=== PATIENT | male | born 1940 | race Caucasian/White ===

== ENCOUNTER 2016-10-04 21:30 | Inpatient (IN) | payer OTHER ==
[~2016-10-04] VITALS: Ht 188 cm; Wt 183.3 kg
[~2016-10-04 21:30] MED LIST: ALLOPURINOL300 MG PO; ALPRAZOLAM0.25 M2 PO; ALPRAZOLAM0.25 MG PO; AMARYL2 MG PO; ASPIR 8181 M1 PO; Aleve PO; Aspirin E.C. PO; BACTRIM,SEPT1 TABLET PO; CARDIZEM CD120 M1 PO; CARDIZEM90 M1 PO; Cardizem CD,Cartia X PO; Combivent IH; Coumadin,Jantoven PO; Diabeta,Micronase PO; Dilaudid PO; GABAPENTIN300 MG PO; Glucotrol PO; K-Dur PO; KEFLEX500 MG PO; LANOXIN,DIGI0.125 MG PO; LANOXIN,DIGIT0.25 MG PO; LASIX40 MG PO; LISINOPRIL2.5 MG PO; LOMOTIL TABLET1 EACH PO; LOPRESSOR25 MG PO; LORTAB 7.5/51 TABLET PO; LOTENSIN20 M1 PO; LOTENSIN20 MG PO; MP MAGNESIUM100 MG PO; NEURONTIN300 MG PO; NITROSTAT,NITR0.4 M1 SL; NYSTATIN15 GM TP; Neurontin PO; PERCOCET 5/31 TABLET PO; PRAVACHOL40 MG PO; PREVACID30 MG PO; PRILOSEC OTC20 MG PO; PROVENTIL,2.5 MG/3 M IH; Proventil,Ventolin H IH; RESTASIS 01 DROP/0.4 BOTH EYES; SPIRIVA1 INHALATI IH; TOPROL XL100 MG PO; TUDORZA PRESS400 MCG IH; TUMS500 MG PO; Tudorza Pressair IH; VICODIN,LORT1 TABLET PO; ValTRex PO; Vitamin D, Drisdol PO; XANAX0.25 MG PO; XOPENEX1.25 MG/0. IH; Xanax PO; ZOLOFT50 MG PO; ZYLOPRIM100 MG PO; ZYLOPRIM150 MG PO; ZYLOPRIM300 MG PO; ZYVOX600 MG PO; Zestril,Prinivil PO; Zithromax PO; Zoloft PO; Zyloprim PO; predniSONE PO
[2016-10-04 22:49] LABS: EOSINOPHIL (%) 0.4 % (0-5); EOSINOPHIL COUNT 0.1 K/uL (0-0.3); HEMATOCRIT 36.2 % (38.0-50.0); IMMATURE GRANULOCYTE (%) 0.8 % (0.0-0.7); IMMATURE GRANULOCYTE COUNT 0.1 K/uL; INSTRUMENT ABS NEUTROPHIL CT 9.8 K/uL; LYMPHOCYTE COUNT 0.5 K/uL (1.0-2.8); MCH 28.5 PG (29.0-34.0); MCHC 31.2 G/DL (30.0-36.0); MCV 91.2 FL (86-99); MEAN PLAT.VOLUME 9.3 uM^3 (9.0-12.4); MONOCYTE (%) 7.1 % (3-12); MONOCYTE COUNT 0.8 K/uL (0-0.8); NEUTROPHIL COUNT 9.8 K/uL (1.8-6.4); PLATELET COUNT 161 K/uL (156-360); RBC DIS.WIDTH-CV 16.5 % (11.8-14.6); RBC DIS.WIDTH-SD 55.5 % (39-53); RED BLOOD COUNT 3.97 M/uL (4.00-5.50); WHITE BLOOD COUNT 11.3 K/uL (4.1-10.2)
[2016-10-04 22:58] LABS: CHLORIDE 99 mEq/L (99-109); POTASSIUM 4.6 mEq/L (3.7-5.4); SODIUM 136 mEq/L (136-147)
[2016-10-04 23:01] LABS: GLUCOSE 192 mg/dL (70-99)
[2016-10-04 23:02] LABS: ANION GAP 9 MEQ/L (2-14)
[2016-10-04 23:04] LABS: ALKALINE PHOSPHATASE 107 IU/L (3-129); GFR ESTIMATE (CALCULATED) 45 mL/min/
[2016-10-04 23:05] LABS: UREA NITROGEN (BUN) 34 mg/dL (9-23)
[2016-10-04 23:09] LABS: TROP-I INTERPRETATION NEGATIVE; TROPONIN-I < 0.01 ng/mL (0.0-0.30)
[2016-10-05 00:10] LABS: ADD MIUA? YES; BILIRUBIN NEGATIVE; BLOOD SMALL; COLOR YELLOW ((YELLOW)); GLUCOSE (STRIP) NEGATIVE; KETONES NEGATIVE; LEUKOCYTES NEGATIVE; NITRITE NEGATIVE; PROTEIN (STRIP) 100; SPECIFIC GRAVITY 1.016 (1.000-1.030)
[2016-10-05 00:17] LABS: BACTERIA NONE SEEN /HPF; EPITHELIAL CELLS RARE /HPF; HYALINE CASTS 0-5 /LPF; MUCUS TRACE /LPF; UCUL ADDED? NO; WHITE BLOOD CELLS 0-5 /HPF (0-5)
[2016-10-05 03:24] VITALS: BP 136/84
[2016-10-05 05:49] LABS: EOSINOPHIL (%) 0.5 % (0-5); EOSINOPHIL COUNT 0.1 K/uL (0-0.3); IMMATURE GRANULOCYTE (%) 0.6 % (0.0-0.7); IMMATURE GRANULOCYTE COUNT 0.1 K/uL; INSTRUMENT ABS NEUTROPHIL CT 10.6 K/uL; LYMPHOCYTE COUNT 0.7 K/uL (1.0-2.8); MCH 30.1 PG (29.0-34.0); MCHC 33.1 G/DL (30.0-36.0); MCV 90.9 FL (86-99); MEAN PLAT.VOLUME 9.1 uM^3 (9.0-12.4); MONOCYTE (%) 9.9 % (3-12); MONOCYTE COUNT 1.3 K/uL (0-0.8); NEUTROPHIL (%) 83.5 % (45-76); NEUTROPHIL COUNT 10.6 K/uL (1.8-6.4); PLATELET COUNT 152 K/uL (156-360); RBC DIS.WIDTH-CV 16.7 % (11.8-14.6); RBC DIS.WIDTH-SD 56.1 % (39-53); RED BLOOD COUNT 3.52 M/uL (4.00-5.50); WHITE BLOOD COUNT 12.6 K/uL (4.1-10.2)
[2016-10-05 06:19] LABS: ANION GAP 8 MEQ/L (2-14); CHLORIDE 103 MEQ/L (99-109); GFR ESTIMATE (CALCULATED) 52 mL/min/; GLUCOSE 182 mg/dL (70-99); POTASSIUM 4.4 MEQ/L (3.7-5.4); SAMPLE HEMOLYSIS CHECK 0; SAMPLE ICTERIC CHECK 0; SAMPLE LIPEMIA CHECK 0; SODIUM 138 MEQ/L (136-147); UREA NITROGEN (BUN) 34 mg/dL (9-23)
[2016-10-05 09:04] VITALS: BP 139/83
[2016-10-05] MEDS ORDERED: DILTIAZEM ER360 M1 PO (09:16)
[2016-10-05] MEDS ORDERED: ALPRAZOLAM0.25 M2 PO (09:17)
[2016-10-05] MEDS ORDERED: NEURONTIN300 MG PO (09:18)
[2016-10-05] MEDS ORDERED: ZESTRIL5 MG PO (09:18)
[2016-10-05] MEDS ORDERED: VITAMIN D32000 UNI1 PO (09:19)
[2016-10-05] MEDS ORDERED: PROBIOTIC1 EAC1 PO (09:19)
[2016-10-05] MEDS ORDERED: ZYLOPRIM300 MG PO (09:20)
[2016-10-05 12:08] VITALS: BP 139/85
[2016-10-05] MEDS ORDERED: CHILD ASPIRIN81 M1 PO (12:39)
[2016-10-05 14:38] LABS: POINT-OF-CARE METER ID UU14174225
[2016-10-05 17:48] VITALS: BP 146/82
[2016-10-05 17:58] LABS: POINT-OF-CARE METER ID UU13113717
[2016-10-05 19:52] VITALS: BP 145/68
[2016-10-05 21:32] LABS: POINT-OF-CARE METER ID UU13113717
[2016-10-06] VITALS (7 sets, daily range): BP systolic 127–161; BP diastolic 70–94
[2016-10-06 02:53] LABS: POINT-OF-CARE METER ID UU14188625
[2016-10-06 05:32] LABS: HEMATOCRIT 32.4 % (38.0-50.0); MCH 29.4 PG (29.0-34.0); MCHC 32.7 G/DL (30.0-36.0); MCV 89.8 FL (86-99); MEAN PLAT.VOLUME 9.2 uM^3 (9.0-12.4); PLATELET COUNT 165 K/uL (156-360); RBC DIS.WIDTH-CV 16.1 % (11.8-14.6); RBC DIS.WIDTH-SD 53.1 % (39-53); RED BLOOD COUNT 3.61 M/uL (4.00-5.50); WHITE BLOOD COUNT 9.9 K/uL (4.1-10.2)
[2016-10-06 05:59] LABS: ANION GAP 7 MEQ/L (2-14); CHLORIDE 101 MEQ/L (99-109); GFR ESTIMATE (CALCULATED) 57 mL/min/; GLUCOSE 229 mg/dL (70-99); SAMPLE HEMOLYSIS CHECK 0; SAMPLE ICTERIC CHECK 0; SAMPLE LIPEMIA CHECK 0; SODIUM 135 MEQ/L (136-147); UREA NITROGEN (BUN) 38 mg/dL (9-23)
[2016-10-06 06:16] LABS: POINT-OF-CARE METER ID UU14188625
[2016-10-06 10:06] LABS: INTERNAL CONTROL VALID? YES
[2016-10-06 10:29] LABS: POINT-OF-CARE METER ID UU14188625
[2016-10-06 17:44] LABS: POINT-OF-CARE METER ID UU14188625
[2016-10-07 02:26] LABS: POINT-OF-CARE METER ID UU14174225
[2016-10-07 03:46] VITALS: BP 165/91
[2016-10-07 06:16] LABS: ANION GAP 9 MEQ/L (2-14); CHLORIDE 100 MEQ/L (99-109); GFR ESTIMATE (CALCULATED) 48 mL/min/; GLUCOSE 209 mg/dL (70-99); POTASSIUM 4.9 MEQ/L (3.7-5.4); SAMPLE HEMOLYSIS CHECK 0; SAMPLE ICTERIC CHECK 0; SAMPLE LIPEMIA CHECK 0; SODIUM 137 MEQ/L (136-147); UREA NITROGEN (BUN) 46 mg/dL (9-23)
[2016-10-07 07:42] VITALS: BP 142/98
[2016-10-07 11:03] LABS: POINT-OF-CARE USER ID STWAMT
[2016-10-07 11:06] VITALS: BP 153/72
[2016-10-07] MEDS ORDERED: PREDNISONE20 MG PO (11:29)
[2016-10-07] MEDS ORDERED: ASPIR-LOW81 MG PO (11:29)
[2016-10-07] MEDS ORDERED: LEVEMIR FL100 UNIT/1 SC (11:33)
[2016-10-07] MEDS ORDERED: LEVAQUIN750 MG PO (11:40)
[2016-10-07] MEDS ORDERED: 1ST TIER UNILE1 EAC1 MC (11:41)
[2016-10-07] MEDS ORDERED: EASY COMFORT I1 EAC4 MC (11:41)
[2016-10-07] MEDS ORDERED: GLUCOMETER MC (11:41)
[2016-10-07] MEDS ORDERED: NOVOLOG PE100 UNITS/ SC (11:47)
[2016-10-07] MEDS ORDERED: VENTOLIN HFA18 GM IH (11:48)
[2016-10-07] MEDS ORDERED: ATROVENT H200 INHALA IH (11:49)
[2016-10-07] MEDS ORDERED: MEDROL DOSEPAK4 MG PO (11:55)
[2016-10-07] MEDS ORDERED: FORA V10-V12-D1 EACH MC (11:58)
[2016-10-07] MEDS ORDERED: HYDROCODON-ACE1 EAC7 PO (12:59)
[2016-10-07] MEDS ORDERED: PROAIR HFA8.5 GM IH (13:00)
== END 2016-10-07 15:51 | disposition home health service (06) | DRG 190 ==
LOC: EME → EDBD 21:30 → EME 21:30 → EDOF 10-05 01:55 → 5SOUTH 10-05 01:55 → ENRESERV 10-05 01:56 → 5SOUTH 10-05 02:58
PROVIDERS: Emergency Medicine; Internal Medicine; Physician Assistant Medical
DX: J44.0 Chronic obstructive pulmonary disease with (acute) lower respiratory infection (principal); J18.1 Lobar pneumonia, unspecified organism; J44.1 Chronic obstructive pulmonary disease with (acute) exacerbation; G47.33 Obstructive sleep apnea (adult) (pediatric); I13.0 Hypertensive heart and chronic kidney disease with heart failure and stage 1 through stage 4 chronic kidney disease, or unspecified chronic kidney disease; Z99.81 Dependence on supplemental oxygen; Z68.43 Body mass index [BMI] 50.0-59.9, adult; J96.11 Chronic respiratory failure with hypoxia; I48.2 Chronic atrial fibrillation; N18.3 Chronic kidney disease, stage 3 (moderate); E11.22 Type 2 diabetes mellitus with diabetic chronic kidney disease; E11.65 Type 2 diabetes mellitus with hyperglycemia; I71.2 Thoracic aortic aneurysm, without rupture; F41.9 Anxiety disorder, unspecified; I50.9 Heart failure, unspecified; K21.9 Gastro-esophageal reflux disease without esophagitis; Z90.2 Acquired absence of lung [part of]; Z79.82 Long term (current) use of aspirin; Z86.718 Personal history of other venous thrombosis and embolism; Z85.118 Personal history of other malignant neoplasm of bronchus and lung
CPT/HCPCS: 71020; 71250; 71275; 80048; 80053; 81003; 82948; 83605; 83880; 84484; 85025; 85027; 85379; 87040; 87070; 87205; 87449; 93005; 93970; 94640; 94640 76; 94799; 99202; 99281; 99285; J0456; J0696; J1644; J1815; J2930; J7050; J7644

== ENCOUNTER 2016-10-31 20:09 | Inpatient (IN) | payer OTHER ==
[~2016-10-31] VITALS: Ht 188 cm; Wt 197.0 kg
[~2016-10-31 20:09] MED LIST changes: +1ST TIER UNILE1 EAC1 MC; +ASPIR-LOW81 MG PO; +ATROVENT H200 INHALA IH; +CHILD ASPIRIN81 M1 PO; +DILTIAZEM ER360 M1 PO; +EASY COMFORT I1 EAC4 MC; +FORA V10-V12-D1 EACH MC; +GLUCOMETER MC; +HYDROCODON-ACE1 EAC7 PO; +LEVAQUIN750 MG PO; +LEVEMIR FL100 UNIT/1 SC; +MEDROL DOSEPAK4 MG PO; +NOVOLOG PE100 UNITS/ SC; +PREDNISONE20 MG PO; +PROAIR HFA8.5 GM IH; +PROBIOTIC1 EAC1 PO; +VENTOLIN HFA18 GM IH; +VITAMIN D32000 UNI1 PO; +ZESTRIL5 MG PO
[2016-10-31 20:35] LABS: EOSINOPHIL (%) 0.3 % (0-5); IMMATURE GRANULOCYTE (%) 0.9 % (0.0-0.7); INSTRUMENT ABS NEUTROPHIL CT 3.1 K/uL; LYMPHOCYTE COUNT 0.2 K/uL (1.0-2.8); MCH 28.5 PG (29.0-34.0); MCHC 30.3 G/DL (30.0-36.0); MONOCYTE (%) 2.1 % (3-12); MONOCYTE COUNT 0.1 K/uL (0-0.8); NEUTROPHIL (%) 92.2 % (45-76); NEUTROPHIL COUNT 3.1 K/uL (1.8-6.4); RBC DIS.WIDTH-CV 17.4 % (11.8-14.6); RBC DIS.WIDTH-SD 60.2 % (39-53); RED BLOOD COUNT 4.03 M/uL (4.00-5.50); WHITE BLOOD COUNT 3.4 K/uL (4.1-10.2)
[2016-10-31 20:41] LABS: CHLORIDE 102 mEq/L (99-109); POTASSIUM 4.9 mEq/L (3.7-5.4)
[2016-10-31 20:42] LABS: SODIUM 142 mEq/L (136-147)
[2016-10-31 20:44] LABS: GLUCOSE 130 mg/dL (70-99)
[2016-10-31 20:45] LABS: ANION GAP 13 MEQ/L (2-14)
[2016-10-31 20:46] LABS: TOTAL BILIRUBIN 1.1 mg/dL (0.0-1.0)
[2016-10-31 20:47] LABS: ALKALINE PHOSPHATASE 136 IU/L (3-129); GFR ESTIMATE (CALCULATED) 42 mL/min/
[2016-10-31 20:49] LABS: UREA NITROGEN (BUN) 29 mg/dL (9-23)
[2016-10-31 20:53] LABS: TROP-I INTERPRETATION NEGATIVE; TROPONIN-I 0.01 ng/mL (0.0-0.30)
[2016-10-31 20:58] LABS: BASE EXCESS 2.8 mEq/L (-3 to +3); BICARBONATE 27.9 mEq/L (22-26); CARBOXY HGB 1.9 % (0-5); COMMENTS - BLOOD GASES A+C+; DEVICE NRM; METHEMOGLOBIN 0.9 % (0-1.5); O2 FLOW 15 L/MIN; PCO2 44 mm Hg (35-45); PO2 308 mm Hg (80-100); SITE LR; pH 7.41 (7.35-7.45)
[2016-10-31 20:59] LABS: TOTAL RESP RATE 28 resp/min
[2016-10-31 21:00] LABS: MCV 94.3 FL (86-99)
[2016-10-31 21:19] LABS: MEAN PLAT.VOLUME 8.4 uM^3 (9.0-12.4); PLAT.SUFFICIENCY DECREASED
[2016-10-31 21:31] LABS: PLATELET COUNT 114 K/uL (156-360)
[2016-10-31 22:42] LABS: ADD MIUA? NO; BILIRUBIN SMALL; BLOOD NEGATIVE; COLOR AMBER ((YELLOW)); GLUCOSE (STRIP) NEGATIVE; KETONES NEGATIVE; LEUKOCYTES NEGATIVE; NITRITE NEGATIVE; PROTEIN (STRIP) 30; UCUL ADDED? NO
[2016-10-31] MEDS ORDERED: LO-DOSE ASPIRIN81 M2 PO (23:38)
[2016-10-31] MEDS ORDERED: DITROPAN5 MG PO (23:47)
[2016-10-31] MEDS ORDERED: ROCALTROL0.25 MCG PO (23:47)
[2016-11-01] VITALS (7 sets, daily range): BP systolic 114–152; BP diastolic 70–82
[2016-11-01 04:11] LABS: INTER. NORMALIZED RATIO 1.2; PROTHROMBIN TIME 13.2 SEC (10.2-12.9)
[2016-11-01 04:14] LABS: PTT 23.1 SEC (25-37)
[2016-11-01 04:14] LABS: TROP-I INTERPRETATION NEGATIVE; TROPONIN-I 0.02 ng/mL (0.0-0.30)
[2016-11-01 07:34] LABS: POINT-OF-CARE METER ID UU13113698
[2016-11-01 11:00] LABS: HEMATOCRIT 34.3 % (38.0-50.0); MCH 28.5 PG (29.0-34.0); MCHC 30.6 G/DL (30.0-36.0); MEAN PLAT.VOLUME 8.5 uM^3 (9.0-12.4); PLATELET COUNT 125 K/uL (156-360); RBC DIS.WIDTH-CV 17.6 % (11.8-14.6); RBC DIS.WIDTH-SD 60.1 % (39-53); RED BLOOD COUNT 3.69 M/uL (4.00-5.50); WHITE BLOOD COUNT 6.4 K/uL (4.1-10.2)
[2016-11-01 11:30] LABS: ALKALINE PHOSPHATASE 100 IU/L (3-129); ANION GAP 9 MEQ/L (2-14); CHLORIDE 105 MEQ/L (99-109); GFR ESTIMATE (CALCULATED) 48 mL/min/; GLUCOSE 119 mg/dL (70-99); POTASSIUM 4.4 MEQ/L (3.7-5.4); SAMPLE HEMOLYSIS CHECK 0; SAMPLE ICTERIC CHECK 0; SAMPLE LIPEMIA CHECK 0; SODIUM 142 MEQ/L (136-147); TOTAL BILIRUBIN 0.9 MG/DL (0.0-1.0); UREA NITROGEN (BUN) 28 mg/dL (9-23)
[2016-11-01 11:31] LABS: POINT-OF-CARE METER ID UU13113698
[2016-11-01 11:41] LABS: TROP-I INTERPRETATION NEGATIVE; TROPONIN-I < 0.01 ng/mL (0.0-0.30)
[2016-11-01 16:27] LABS: POINT-OF-CARE METER ID UU13113698
[2016-11-01 17:25] LABS: INTER. NORMALIZED RATIO 1.2; PROTHROMBIN TIME 13.7 SEC (10.2-12.9)
[2016-11-01 17:28] LABS: PTT 55.2 SEC (25-37)
[2016-11-01 23:48] LABS: INTER. NORMALIZED RATIO 1.2; PROTHROMBIN TIME 13.2 SEC (10.2-12.9)
[2016-11-01 23:51] LABS: PTT 51.7 SEC (25-37)
[2016-11-02 02:58] LABS: POINT-OF-CARE METER ID UU13113698
[2016-11-02 04:06] VITALS: BP 125/75
[2016-11-02 06:32] LABS: MCH 29.2 PG (29.0-34.0); MCHC 31.3 G/DL (30.0-36.0); MCV 93.6 FL (86-99); MEAN PLAT.VOLUME 8.9 uM^3 (9.0-12.4); PLATELET COUNT 127 K/uL (156-360); RBC DIS.WIDTH-CV 17.2 % (11.8-14.6); RBC DIS.WIDTH-SD 58.8 % (39-53); RED BLOOD COUNT 3.42 M/uL (4.00-5.50); WHITE BLOOD COUNT 5.1 K/uL (4.1-10.2)
[2016-11-02 06:58] LABS: ANION GAP 6 MEQ/L (2-14); CHLORIDE 102 MEQ/L (99-109); GFR ESTIMATE (CALCULATED) 48 mL/min/; GLUCOSE 134 mg/dL (70-99); POTASSIUM 4.5 MEQ/L (3.7-5.4); SAMPLE HEMOLYSIS CHECK 0; SAMPLE ICTERIC CHECK 0; SAMPLE LIPEMIA CHECK 0; SODIUM 141 MEQ/L (136-147); UREA NITROGEN (BUN) 27 mg/dL (9-23)
[2016-11-02 07:33] LABS: POINT-OF-CARE METER ID UU13113698
[2016-11-02 07:42] VITALS: BP 131/84
[2016-11-02 12:25] LABS: POINT-OF-CARE METER ID UU13113781
[2016-11-02 12:29] VITALS: BP 138/81
[2016-11-02 14:44] VITALS: BP 124/65
[2016-11-02 16:25] LABS: POINT-OF-CARE METER ID UU13113781
[2016-11-02 19:34] VITALS: BP 146/82
[2016-11-03 00:20] VITALS: BP 141/80
[2016-11-03 03:10] VITALS: BP 141/82
[2016-11-03 03:44] LABS: POINT-OF-CARE METER ID UU13113781
[2016-11-03 05:42] LABS: HEMATOCRIT 30.6 % (38.0-50.0); MCH 29.3 PG (29.0-34.0); MCHC 31.7 G/DL (30.0-36.0); MCV 92.4 FL (86-99); MEAN PLAT.VOLUME 8.7 uM^3 (9.0-12.4); PLATELET COUNT 147 K/uL (156-360); RBC DIS.WIDTH-CV 17.2 % (11.8-14.6); RBC DIS.WIDTH-SD 58.4 % (39-53); RED BLOOD COUNT 3.31 M/uL (4.00-5.50); WHITE BLOOD COUNT 4.2 K/uL (4.1-10.2)
[2016-11-03 07:35] VITALS: BP 131/88
[2016-11-03 07:59] LABS: POINT-OF-CARE USER ID NUTSLF44
== END 2016-11-03 11:02 | disposition home health service (06) | DRG 191 ==
LOC: EME → EDBD 20:09 → EDOF 11-01 01:36 → 4EAST 11-01 01:36 → ENRESERV 11-01 01:37 → 4EAST 11-01 02:34
PROVIDERS: Emergency Medicine; Hospitalist; Internal Medicine
DX: J44.1 Chronic obstructive pulmonary disease with (acute) exacerbation (principal); N17.9 Acute kidney failure, unspecified; I13.0 Hypertensive heart and chronic kidney disease with heart failure and stage 1 through stage 4 chronic kidney disease, or unspecified chronic kidney disease; E11.22 Type 2 diabetes mellitus with diabetic chronic kidney disease; N18.3 Chronic kidney disease, stage 3 (moderate); I50.9 Heart failure, unspecified; E86.0 Dehydration; E87.2 Acidosis; G47.33 Obstructive sleep apnea (adult) (pediatric); Z99.81 Dependence on supplemental oxygen; I48.0 Paroxysmal atrial fibrillation; K21.9 Gastro-esophageal reflux disease without esophagitis; I71.2 Thoracic aortic aneurysm, without rupture; I87.2 Venous insufficiency (chronic) (peripheral); R31.9 Hematuria, unspecified; M10.9 Gout, unspecified; K75.9 Inflammatory liver disease, unspecified; F41.9 Anxiety disorder, unspecified; F32.9 Major depressive disorder, single episode, unspecified; E66.01 Morbid (severe) obesity due to excess calories; Z68.43 Body mass index [BMI] 50.0-59.9, adult; Z79.4 Long term (current) use of insulin; Z85.118 Personal history of other malignant neoplasm of bronchus and lung; Z87.891 Personal history of nicotine dependence; Z90.2 Acquired absence of lung [part of]
CPT/HCPCS: 36600; 71010; 71250; 74176; 78582; 80048; 80053; 81003; 82803; 82948; 83605; 83880; 84484; 85025; 85027; 85379; 85610; 85730; 87040; 93005; 94640; 94640 76; 99202; 99281; 99284; A9539; A9540; J1644; J1815; J2543; J3370; J7030; J7050

== ENCOUNTER 2017-02-06 12:51 | Inpatient (IN) | payer OTHER ==
[~2017-02-06] VITALS: Ht 188 cm; Wt 224.0 kg
[~2017-02-06 12:51] MED LIST changes: +DITROPAN5 MG PO; +LO-DOSE ASPIRIN81 M2 PO; +ROCALTROL0.25 MCG PO
[2017-02-06 14:04] LABS: BASE EXCESS 6.5 mEq/L (-3 to +3); BICARBONATE 34.3 mEq/L (22-26); CARBOXY HGB 2.9 % (0-5); COMMENTS - BLOOD GASES A+C+; DEVICE NC; METHEMOGLOBIN 0.9 % (0-1.5); O2 FLOW 2 L/MIN; PCO2 65 mm Hg (35-45); PO2 82 mm Hg (80-100); SITE RR; TOTAL RESP RATE 18 resp/min; pH 7.33 (7.35-7.45)
[2017-02-06 14:33] LABS: HEMATOCRIT 38.3 % (38.0-50.0); MCH 28.6 PG (29.0-34.0); MCHC 30.5 G/DL (30.0-36.0); MCV 93.6 FL (86-99); MEAN PLAT.VOLUME 8.9 uM^3 (9.0-12.4); PLATELET COUNT 130 K/uL (156-360); RBC DIS.WIDTH-SD 58.5 % (39-53); RED BLOOD COUNT 4.09 M/uL (4.00-5.50); WHITE BLOOD COUNT 6.2 K/uL (4.1-10.2)
[2017-02-06 14:45] LABS: CHLORIDE 99 mEq/L (99-109); SODIUM 141 mEq/L (136-147)
[2017-02-06 14:47] LABS: GLUCOSE 224 mg/dL (70-99)
[2017-02-06 14:48] LABS: ANION GAP 10 MEQ/L (2-14)
[2017-02-06 14:49] LABS: TOTAL BILIRUBIN 0.6 mg/dL (0.0-1.0)
[2017-02-06 14:50] LABS: ALKALINE PHOSPHATASE 104 IU/L (3-129)
[2017-02-06 14:51] LABS: GFR ESTIMATE (CALCULATED) 57 mL/min/
[2017-02-06 14:52] LABS: UREA NITROGEN (BUN) 24 mg/dL (9-23)
[2017-02-06 14:55] LABS: TROP-I INTERPRETATION NEGATIVE; TROPONIN-I 0.02 ng/mL (0.0-0.30)
[2017-02-06 18:05] LABS: ADD MIUA? YES; BILIRUBIN NEGATIVE; BLOOD SMALL; COLOR STRAW ((YELLOW)); GLUCOSE (STRIP) NEGATIVE; KETONES NEGATIVE; LEUKOCYTES NEGATIVE; NITRITE NEGATIVE; PROTEIN (STRIP) NEGATIVE; SPECIFIC GRAVITY 1.005 (1.000-1.030); UROBILINOGEN 0.2 MG/DL (0.2-1.0)
[2017-02-06 18:15] LABS: BACTERIA NONE SEEN /HPF; EPITHELIAL CELLS NONE SEEN /HPF; MUCUS NONE SEEN /LPF; RED BLOOD CELLS 0-5 /HPF (0-5); UCUL ADDED? NO; WHITE BLOOD CELLS 0-5 /HPF (0-5)
[2017-02-06 21:39] VITALS: BP 146/70
[2017-02-06 22:22] LABS: POINT-OF-CARE METER ID UU13113725
[2017-02-06 22:50] LABS: TROP-I INTERPRETATION NEGATIVE; TROPONIN-I 0.01 ng/mL (0.0-0.30)
[2017-02-06 23:42] VITALS: BP 171/86
[2017-02-07 03:35] LABS: TROP-I INTERPRETATION NEGATIVE; TROPONIN-I 0.02 ng/mL (0.0-0.30)
[2017-02-07 05:53] LABS: POINT-OF-CARE METER ID UU13113725
[2017-02-07 06:20] LABS: HEMATOCRIT 38.2 % (38.0-50.0); MCH 27.7 PG (29.0-34.0); MCHC 30.1 G/DL (30.0-36.0); PLATELET COUNT 129 K/uL (156-360); RBC DIS.WIDTH-CV 16.6 % (11.8-14.6); RBC DIS.WIDTH-SD 56.6 % (39-53); RED BLOOD COUNT 4.15 M/uL (4.00-5.50)
[2017-02-07 06:43] LABS: ANION GAP 10 MEQ/L (2-14); CHLORIDE 96 MEQ/L (99-109); GFR ESTIMATE (CALCULATED) 52 mL/min/; GLUCOSE 292 mg/dL (70-99); POTASSIUM 4.5 MEQ/L (3.7-5.4); SAMPLE HEMOLYSIS CHECK 0; SAMPLE ICTERIC CHECK 0; SAMPLE LIPEMIA CHECK 0; SODIUM 142 MEQ/L (136-147); UREA NITROGEN (BUN) 22 mg/dL (9-23)
[2017-02-07 07:37] VITALS: BP 139/93
[2017-02-07 11:32] LABS: POINT-OF-CARE METER ID UU13113725
[2017-02-07 12:05] VITALS: BP 154/84
[2017-02-07] MEDS ORDERED: ALBUTEROL2.5 MG/3 M IH (14:31)
[2017-02-07] MEDS ORDERED: EYE DROP15 ML BOTH EYES (14:32)
[2017-02-07 15:08] VITALS: BP 145/69
[2017-02-07 16:06] LABS: POINT-OF-CARE METER ID UU13113774
[2017-02-07 19:13] VITALS: BP 170/95
[2017-02-07 20:41] LABS: POINT-OF-CARE METER ID UU13113774
[2017-02-07 23:24] VITALS: BP 142/85
[2017-02-08 03:53] VITALS: BP 165/75
[2017-02-08 05:48] LABS: POINT-OF-CARE METER ID UU13113725
[2017-02-08 06:11] LABS: EOSINOPHIL (%) 0 % (0-5); HEMATOCRIT 36.2 % (38.0-50.0); IMMATURE GRANULOCYTE (%) 0.7 % (0.0-0.7); INSTRUMENT ABS NEUTROPHIL CT 5.6 K/uL; LYMPHOCYTE COUNT 0.2 K/uL (1.0-2.8); MCHC 30.9 G/DL (30.0-36.0); MCV 90.5 FL (86-99); MONOCYTE (%) 2.8 % (3-12); MONOCYTE COUNT 0.2 K/uL (0-0.8); NEUTROPHIL (%) 93.2 % (45-76); NEUTROPHIL COUNT 5.6 K/uL (1.8-6.4); PLATELET COUNT 130 K/uL (156-360); RBC DIS.WIDTH-CV 16.3 % (11.8-14.6); RBC DIS.WIDTH-SD 54.6 % (39-53)
[2017-02-08 06:30] LABS: CHLORIDE 95 MEQ/L (99-109); POTASSIUM 4.3 MEQ/L (3.7-5.4); SODIUM 137 MEQ/L (136-147)
[2017-02-08 08:00] VITALS: BP 143/77
[2017-02-08 08:14] LABS: ANION GAP 7 MEQ/L (2-14); GFR ESTIMATE (CALCULATED) 45 mL/min/; GLUCOSE 305 mg/dL (70-99); SAMPLE HEMOLYSIS CHECK 0; SAMPLE ICTERIC CHECK 0; SAMPLE LIPEMIA CHECK 0
[2017-02-08 08:16] LABS: UREA NITROGEN (BUN) 34 mg/dL (9-23)
[2017-02-08 08:29] LABS: VANCOMYCIN, TROUGH 17.7 MCG/ML (10-20)
[2017-02-08 11:43] LABS: POINT-OF-CARE METER ID UU13113725
[2017-02-08 12:00] VITALS: BP 153/76
[2017-02-08 15:56] LABS: POINT-OF-CARE METER ID UU13113725
[2017-02-08 16:00] VITALS: BP 129/98
[2017-02-08 19:29] VITALS: BP 135/78
[2017-02-08 21:57] LABS: POINT-OF-CARE METER ID UU13113725
[2017-02-08 23:25] VITALS: BP 118/64
[2017-02-09 04:34] VITALS: BP 140/82
[2017-02-09 06:19] LABS: POINT-OF-CARE METER ID UU13113774
[2017-02-09 07:29] VITALS: BP 138/68
[2017-02-09 11:00] LABS: POINT-OF-CARE METER ID UU13113774
[2017-02-09 11:25] VITALS: BP 140/65
[2017-02-09 15:14] LABS: POINT-OF-CARE METER ID UU13113774
[2017-02-09 16:05] LABS: POINT-OF-CARE METER ID UU13113774
[2017-02-09 17:44] VITALS: BP 133/70
[2017-02-09 19:30] VITALS: BP 140/82
[2017-02-09 21:34] LABS: POINT-OF-CARE METER ID UU13113725
[2017-02-09 23:44] VITALS: BP 162/98
[2017-02-10 04:02] VITALS: BP 146/80
[2017-02-10 05:29] LABS: POINT-OF-CARE METER ID UU13113725
[2017-02-10 06:55] VITALS: BP 153/86
[2017-02-10 07:21] LABS: ANION GAP 10 MEQ/L (2-14); CHLORIDE 93 MEQ/L (99-109); GFR ESTIMATE (CALCULATED) 42 mL/min/; GLUCOSE 261 mg/dL (70-99); POTASSIUM 4.4 MEQ/L (3.7-5.4); SAMPLE HEMOLYSIS CHECK 0; SAMPLE ICTERIC CHECK 0; SAMPLE LIPEMIA CHECK 0; SODIUM 141 MEQ/L (136-147); UREA NITROGEN (BUN) 49 mg/dL (9-23)
[2017-02-10 11:10] VITALS: BP 149/94
[2017-02-10 11:32] LABS: POINT-OF-CARE METER ID UU13113774
[2017-02-10] MEDS ORDERED: ADVAIR HFA120 INHALA IH (14:01)
[2017-02-10] MEDS ORDERED: NIZORAL 2% CREA15 GM TP (14:01)
[2017-02-10] MEDS ORDERED: CEPHALEXIN500 MG PO (14:01)
[2017-02-10] MEDS ORDERED: PREDNISONE10 MG PO (14:01)
[2017-02-10] MEDS ORDERED: FUROSEMIDE40 MG PO (14:01)
[2017-02-10 14:50] VITALS: BP 136/88
[2017-02-10 15:38] LABS: POINT-OF-CARE METER ID UU13113725
[2017-02-10 16:27] LABS: POINT-OF-CARE METER ID UU13113725
== END 2017-02-10 17:40 | DRG 189 ==
LOC: EME 12:51 → 5EAST 18:29 → EDOF 18:29 → ENRESERV 18:39 → 5EAST 20:58
PROVIDERS: Emergency Medicine; Hospitalist; Student in an Organized Health Care Education/Training Program
PROC: 5A09357 Assistance with Respiratory Ventilation, Less than 24 Consecutive Hours, Continuous Positive Airway Pressure (ICD-10-PCS; principal; 2017-02-06)
DX: J96.21 Acute and chronic respiratory failure with hypoxia (principal); J96.22 Acute and chronic respiratory failure with hypercapnia; J44.1 Chronic obstructive pulmonary disease with (acute) exacerbation; J44.0 Chronic obstructive pulmonary disease with (acute) lower respiratory infection; J20.9 Acute bronchitis, unspecified; I13.0 Hypertensive heart and chronic kidney disease with heart failure and stage 1 through stage 4 chronic kidney disease, or unspecified chronic kidney disease; I50.810 Right heart failure, unspecified; N18.3 Chronic kidney disease, stage 3 (moderate); E11.22 Type 2 diabetes mellitus with diabetic chronic kidney disease; L03.116 Cellulitis of left lower limb; L03.115 Cellulitis of right lower limb; I87.8 Other specified disorders of veins; I87.2 Venous insufficiency (chronic) (peripheral); L97.919 Non-pressure chronic ulcer of unspecified part of right lower leg with unspecified severity; E11.65 Type 2 diabetes mellitus with hyperglycemia; T38.0X5A Adverse effect of glucocorticoids and synthetic analogues, initial encounter; I48.2 Chronic atrial fibrillation; G47.33 Obstructive sleep apnea (adult) (pediatric); I27.20 Pulmonary hypertension, unspecified; E66.01 Morbid (severe) obesity due to excess calories; Z68.43 Body mass index [BMI] 50.0-59.9, adult; D64.9 Anemia, unspecified; Z99.81 Dependence on supplemental oxygen; Z85.118 Personal history of other malignant neoplasm of bronchus and lung; Z90.2 Acquired absence of lung [part of]; I45.10 Unspecified right bundle-branch block; K21.9 Gastro-esophageal reflux disease without esophagitis; F32.9 Major depressive disorder, single episode, unspecified; F41.9 Anxiety disorder, unspecified; Z87.891 Personal history of nicotine dependence
CPT/HCPCS: 36600; 71020; 80048; 80053; 80202; 81003; 82803; 82948; 83605; 83880; 84443; 84484; 85025; 85027; 87040; 90686; 93005; 93306; 93970; 94640; 94640 76; 94760; 94799; 99202; 99281; 99285; J0690; J0696; J1644; J1815; J1940; J2920; J2930; J3370

== ENCOUNTER 2017-03-03 18:05 | Inpatient (IN) | payer OTHER ==
[~2017-03-03] VITALS: Ht 188 cm; Wt 194.0 kg
[~2017-03-03 18:05] MED LIST changes: +ADVAIR HFA120 INHALA IH; +ALBUTEROL2.5 MG/3 M IH; +CEFAZOLIN-2 GM/100 M IV; +CEPHALEXIN500 MG PO; +DEMADEX20 MG PO; +DULCOLAX10 MG PR; +EYE DROP15 ML BOTH EYES; +FUROSEMIDE40 MG PO; +MILK OF MAGN PO; +MIRALAX17 GM PO; +NIZORAL 2% CREA15 GM TP; +NYSTATIN60 GM TP; +PREDNISONE10 MG PO
[2017-03-03 19:54] LABS: HEMOGLOBIN 11.5 G/DL (12.5-16.6); MCH 28.7 PG (29.0-34.0); MCHC 31.1 G/DL (30.0-36.0); MCV 92.3 FL (86-99); PLATELET COUNT 150 K/uL (156-360); RBC DIS.WIDTH-CV 17.2 % (11.8-14.6); RED BLOOD COUNT 4.01 M/uL (4.00-5.50)
[2017-03-03 20:03] LABS: CHLORIDE 85 mEq/L (99-109); SODIUM 134 mEq/L (136-147)
[2017-03-03 20:05] LABS: GLUCOSE 200 mg/dL (70-99)
[2017-03-03 20:09] LABS: CREATININE 1.5 mg/dL (0.6-1.3); GFR ESTIMATE (CALCULATED) 48 mL/min/ (58.99-99999); UREA NITROGEN (BUN) 29 mg/dL (9-23)
[2017-03-03 20:15] LABS: TROP-I INTERPRETATION NEGATIVE; TROPONIN-I 0.02 ng/mL (0.0-0.30)
[2017-03-03 20:16] LABS: CARBON DIOXIDE (BICARBONATE) > 40.0 mEq/L (20-31)
[2017-03-04 00:27] VITALS: BP 164/89
[2017-03-04 01:30] LABS: APPEARANCE CLEAR ((CLEAR)); BILIRUBIN NEGATIVE; BLOOD SMALL; COLOR STRAW ((YELLOW)); GLUCOSE (STRIP) NEGATIVE; KETONES NEGATIVE; LEUKOCYTES NEGATIVE; NITRITE NEGATIVE; PROTEIN (STRIP) NEGATIVE; SPECIFIC GRAVITY 1.005 (1.000-1.030); UROBILINOGEN 0.2 MG/DL (0.2-1.0)
[2017-03-04 01:37] LABS: BACTERIA NONE SEEN /HPF; EPITHELIAL CELLS NONE SEEN /HPF; MUCUS TRACE /LPF; UCUL ADDED? NO; WHITE BLOOD CELLS 0-5 /HPF (0-5)
[2017-03-04 04:04] VITALS: BP 160/86
[2017-03-04 06:26] LABS: BASOPHIL (%) 0.1 % (0-1); EOSINOPHIL (%) 0.2 % (0-5); HEMATOCRIT 36.8 % (38.0-50.0); HEMOGLOBIN 11.1 G/DL (12.5-16.6); IMMATURE GRANULOCYTE (%) 0.7 % (0.0-0.7); LYMPHOCYTE (%) 1.7 % (15-42); LYMPHOCYTE COUNT 0.2 K/uL (1.0-2.8); MCH 27.6 PG (29.0-34.0); MCHC 30.2 G/DL (30.0-36.0); MCV 91.5 FL (86-99); MONOCYTE (%) 5.5 % (3-12); MONOCYTE COUNT 0.7 K/uL (0-0.8); NEUTROPHIL (%) 91.8 % (45-76); NEUTROPHIL COUNT 12.1 K/uL (1.8-6.4); PLATELET COUNT 145 K/uL (156-360); RBC DIS.WIDTH-CV 17.2 % (11.8-14.6); RBC DIS.WIDTH-SD 58.2 % (39-53); RED BLOOD COUNT 4.02 M/uL (4.00-5.50); WHITE BLOOD COUNT 13.2 K/uL (4.1-10.2)
[2017-03-04 07:05] LABS: CHLORIDE 85 MEQ/L (99-109); CREATININE 1.2 MG/DL (0.6-1.3); GFR ESTIMATE (CALCULATED) > 59 mL/min/ (58.99-99999); GLUCOSE 225 mg/dL (70-99); POTASSIUM 4.9 MEQ/L (3.7-5.4); SODIUM 132 MEQ/L (136-147); UREA NITROGEN (BUN) 27 mg/dL (9-23)
[2017-03-04 11:50] VITALS: BP 135/80
[2017-03-04 17:00] VITALS: BP 126/92
[2017-03-04 19:57] VITALS: BP 153/81
[2017-03-04 23:41] VITALS: BP 146/82
[2017-03-05 03:38] VITALS: BP 148/80
[2017-03-05 08:02] VITALS: BP 113/69
[2017-03-05] MEDS ORDERED: LEVEMIR FL100 UNIT/1 SC (09:30)
[2017-03-05 12:04] LABS: HEMATOCRIT 34.7 % (38.0-50.0); HEMOGLOBIN 10.6 G/DL (12.5-16.6); MCH 28.1 PG (29.0-34.0); MCHC 30.5 G/DL (30.0-36.0); PLATELET COUNT 159 K/uL (156-360); RBC DIS.WIDTH-CV 17.1 % (11.8-14.6); RBC DIS.WIDTH-SD 58.2 % (39-53); RED BLOOD COUNT 3.77 M/uL (4.00-5.50); WHITE BLOOD COUNT 8.8 K/uL (4.1-10.2)
[2017-03-05 12:17] VITALS: BP 130/83
[2017-03-05 12:34] LABS: CHLORIDE 85 MEQ/L (99-109); CREATININE 1.4 MG/DL (0.6-1.3); GFR ESTIMATE (CALCULATED) 52 mL/min/ (58.99-99999); GLUCOSE 332 mg/dL (70-99); POTASSIUM 4.8 MEQ/L (3.7-5.4); SODIUM 134 MEQ/L (136-147); UREA NITROGEN (BUN) 37 mg/dL (9-23)
[2017-03-05 12:36] LABS: CARBON DIOXIDE (BICARBONATE) > 40.0 MEQ/L (20-31)
[2017-03-05 16:07] VITALS: BP 130/87
[2017-03-05 19:34] VITALS: BP 158/74
[2017-03-05 23:40] VITALS: BP 140/95
[2017-03-06 03:25] VITALS: BP 136/94
[2017-03-06 07:04] VITALS: BP 144/79
[2017-03-06 07:07] LABS: CHLORIDE 88 MEQ/L (99-109); CREATININE 1.6 MG/DL (0.6-1.3); GFR ESTIMATE (CALCULATED) 45 mL/min/ (58.99-99999); GLUCOSE 290 mg/dL (70-99); POTASSIUM 5.6 MEQ/L (3.7-5.4); SODIUM 138 MEQ/L (136-147); UREA NITROGEN (BUN) 46 mg/dL (9-23)
[2017-03-06 07:08] LABS: CARBON DIOXIDE (BICARBONATE) > 40.0 MEQ/L (20-31)
[2017-03-06 11:06] VITALS: BP 161/81
[2017-03-06 15:32] VITALS: BP 174/64
[2017-03-06 20:27] VITALS: BP 101/64
[2017-03-07] VITALS (7 sets, daily range): BP systolic 96–150; BP diastolic 69–94
[2017-03-07 07:34] LABS: CHLORIDE 89 MEQ/L (99-109); CREATININE 1.7 MG/DL (0.6-1.3); GFR ESTIMATE (CALCULATED) 42 mL/min/ (58.99-99999); GLUCOSE 275 mg/dL (70-99); POTASSIUM 4.5 MEQ/L (3.7-5.4); SODIUM 136 MEQ/L (136-147); UREA NITROGEN (BUN) 57 mg/dL (9-23)
[2017-03-08 03:24] VITALS: BP 146/81
[2017-03-08 07:16] VITALS: BP 124/91
[2017-03-08 11:19] VITALS: BP 126/84
[2017-03-08 11:55] LABS: CREATININE 1.6 MG/DL (0.6-1.3)
[2017-03-08 13:31] LABS: VANCOMYCIN, TROUGH 43.8 MCG/ML (10-20)
[2017-03-08 17:08] VITALS: BP 110/68
[2017-03-08 20:29] VITALS: BP 132/80
[2017-03-09] VITALS (10 sets, daily range): BP systolic 59–169; BP diastolic 47–133
[2017-03-09 06:36] LABS: HEMOGLOBIN 10.8 G/DL (12.5-16.6); MCH 27.9 PG (29.0-34.0); NRBC (%) 0.4 /100 WBC (0-0); PLATELET COUNT 160 K/uL (156-360); RBC DIS.WIDTH-CV 16.4 % (11.8-14.6); RBC DIS.WIDTH-SD 55.4 % (39-53); RED BLOOD COUNT 3.87 M/uL (4.00-5.50); WHITE BLOOD COUNT 7.6 K/uL (4.1-10.2)
[2017-03-09 07:13] LABS: CHLORIDE 83 MEQ/L (99-109); GFR ESTIMATE (CALCULATED) 33 mL/min/ (58.99-99999); GLUCOSE 353 mg/dL (70-99); POTASSIUM 4.5 MEQ/L (3.7-5.4); SODIUM 130 MEQ/L (136-147); UREA NITROGEN (BUN) 79 mg/dL (9-23); VANCOMYCIN, TROUGH 35.7 MCG/ML (10-20)
[2017-03-09 07:20] LABS: CREATININE 2.1 MG/DL (0.6-1.3)
[2017-03-09 17:38] LABS: BASE EXCESS 12.1 mEq/L (-3 to +3); BICARBONATE 43.8 mEq/L (22-26); CARBOXY HGB 2.5 % (0-5); COMMENTS - BLOOD GASES A+C+; DEVICE NC; METHEMOGLOBIN 1.4 % (0-1.5); O2 FLOW 5 L/MIN; PCO2 112 mm Hg (35-45); PO2 70 mm Hg (80-100); SITE RR; TOTAL RESP RATE 20 resp/min
[2017-03-09 22:31] LABS: CHLORIDE 86 MEQ/L (99-109); MAGNESIUM 2.1 mg/dl (1.3-2.7); POTASSIUM 4.8 MEQ/L (3.7-5.4); SODIUM 133 MEQ/L (136-147)
[2017-03-09 22:35] LABS: BASE EXCESS 13.9 mEq/L (-3 to +3); BICARBONATE 42.8 mEq/L (22-26); CARBOXY HGB 1.8 % (0-5); METHEMOGLOBIN 1.6 % (0-1.5)
[2017-03-09 22:36] LABS: COMMENTS - BLOOD GASES C+A+; DEVICE VENT; FI02 100 %; MECHANICAL RATE 20 resp/min; MODE AC; PCO2 83 mm Hg (35-45); PEEP 8 CM/H20; PO2 459 mm Hg (80-100); SITE LR; TIDAL VOLUME 400 ML; TOTAL RESP RATE 20 resp/min; pH 7.32 (7.35-7.45)
[2017-03-09 22:37] LABS: CREATININE 2.3 MG/DL (0.6-1.3); GFR ESTIMATE (CALCULATED) 30 mL/min/ (58.99-99999); GLUCOSE 328 mg/dL (70-99); PHOSPHORUS 5.3 mg/dL (2.5-4.9); UREA NITROGEN (BUN) 86 mg/dL (9-23)
[2017-03-09 22:43] LABS: INTER. NORMALIZED RATIO 1.1
[2017-03-09 22:46] LABS: PTT 27.6 SEC (25-37)
[2017-03-09 23:59] LABS: APPEARANCE SL.HAZY ((CLEAR)); BILIRUBIN NEGATIVE; BLOOD NEGATIVE; COLOR YELLOW ((YELLOW)); GLUCOSE (STRIP) 50; KETONES 5; LEUKOCYTES NEGATIVE; NITRITE NEGATIVE; PROTEIN (STRIP) 30; SPECIFIC GRAVITY 1.017 (1.000-1.030); UROBILINOGEN 0.2 MG/DL (0.2-1.0)
[2017-03-10] VITALS (20 sets, daily range): BP systolic 77–136; BP diastolic 48–92
[2017-03-10 00:11] LABS: BACTERIA RARE /HPF; EPITHELIAL CELLS RARE /HPF; MUCUS TRACE /LPF; RED BLOOD CELLS 0-5 /HPF (0-5); UCUL ADDED? NO; WHITE BLOOD CELLS 0-5 /HPF (0-5)
[2017-03-10 04:56] LABS: BASOPHIL (%) 0.1 % (0-1); EOSINOPHIL (%) 0.1 % (0-5); HEMATOCRIT 33.3 % (38.0-50.0); HEMOGLOBIN 10.4 G/DL (12.5-16.6); IMMATURE GRANULOCYTE (%) 1.6 % (0.0-0.7); LYMPHOCYTE (%) 3.4 % (15-42); LYMPHOCYTE COUNT 0.3 K/uL (1.0-2.8); MCH 28.4 PG (29.0-34.0); MCHC 31.2 G/DL (30.0-36.0); MONOCYTE (%) 8.7 % (3-12); MONOCYTE COUNT 0.7 K/uL (0-0.8); NEUTROPHIL (%) 86.1 % (45-76); NEUTROPHIL COUNT 7.2 K/uL (1.8-6.4); PLATELET COUNT 155 K/uL (156-360); RBC DIS.WIDTH-CV 16.4 % (11.8-14.6); RED BLOOD COUNT 3.66 M/uL (4.00-5.50); WHITE BLOOD COUNT 8.3 K/uL (4.1-10.2)
[2017-03-10 05:31] LABS: BASE EXCESS 13.1 mEq/L (-3 to +3); CARBOXY HGB 1.8 % (0-5); METHEMOGLOBIN 1.6 % (0-1.5); pH 7.37 (7.35-7.45)
[2017-03-10 05:32] LABS: COMMENTS - BLOOD GASES A+C+; DEVICE VENT; FI02 50 %; PCO2 71 mm Hg (35-45); PO2 106 mm Hg (80-100); SITE LR
[2017-03-10 05:33] LABS: MECHANICAL RATE 24 resp/min; MODE AC; PEEP 8 CM/H20; TIDAL VOLUME 400 ML; TOTAL RESP RATE 24 resp/min
[2017-03-10 21:04] LABS: UR CREATININE CONCENTRATION 83.3 MG/DL
[2017-03-11] VITALS (23 sets, daily range): BP systolic 91–168; BP diastolic 62–113
[2017-03-11 06:39] LABS: ALBUMIN 2.6 G/DL (3.2-4.8); CHLORIDE 87 MEQ/L (99-109); GFR ESTIMATE (CALCULATED) 21 mL/min/ (58.99-99999); PHOSPHORUS 4.5 mg/dL (2.5-4.9); SODIUM 133 MEQ/L (136-147)
[2017-03-11 06:42] LABS: CREATININE 3.1 MG/DL (0.6-1.3); GLUCOSE 150 mg/dL (70-99); UREA NITROGEN (BUN) 102 mg/dL (9-23)
[2017-03-11 13:32] LABS: ANTI-HEPATITIS B CORE (TOTAL) Nonreactive; HEPATITIS B SURFACE ANTIGEN Nonreactive; HEPATITIS C ANTIBODY Nonreactive
[2017-03-11 13:33] LABS: HEPATITIS B SURFACE ANTIBODY Nonreactive
[2017-03-12] VITALS (24 sets, daily range): BP systolic 87–159; BP diastolic 43–102
[2017-03-12 06:07] LABS: BASOPHIL (%) 0.1 % (0-1); EOSINOPHIL (%) 0.1 % (0-5); HEMATOCRIT 29.5 % (38.0-50.0); HEMOGLOBIN 9.4 G/DL (12.5-16.6); IMMATURE GRANULOCYTE (%) 4.9 % (0.0-0.7); LYMPHOCYTE (%) 3.2 % (15-42); LYMPHOCYTE COUNT 0.4 K/uL (1.0-2.8); MCH 28.9 PG (29.0-34.0); MCHC 31.9 G/DL (30.0-36.0); MCV 90.8 FL (86-99); MONOCYTE (%) 6.6 % (3-12); MONOCYTE COUNT 0.8 K/uL (0-0.8); NEUTROPHIL (%) 85.1 % (45-76); NEUTROPHIL COUNT 10.2 K/uL (1.8-6.4); NRBC (%) 0.3 /100 WBC (0-0); PLATELET COUNT 122 K/uL (156-360); RBC DIS.WIDTH-CV 17.3 % (11.8-14.6); RBC DIS.WIDTH-SD 57.2 % (39-53); RED BLOOD COUNT 3.25 M/uL (4.00-5.50)
[2017-03-12 06:57] LABS: ALBUMIN 2.6 G/DL (3.2-4.8); ALKALINE PHOSPHATASE 63 IU/L (3-129); ALT (GPT) 4 IU/L (3-49); AST (GOT) 9 IU/L (2-34); CHLORIDE 88 MEQ/L (99-109); CREATININE 3.2 MG/DL (0.6-1.3); GFR ESTIMATE (CALCULATED) 20 mL/min/ (58.99-99999); GLUCOSE 132 mg/dL (70-99); GLUCOSE 135 mg/dL (70-99); MAGNESIUM 2.3 mg/dl (1.3-2.7); PHOSPHORUS 5.7 mg/dL (2.5-4.9); SODIUM 133 MEQ/L (136-147); SODIUM 134 MEQ/L (136-147); TOTAL BILIRUBIN 0.5 MG/DL (0.0-1.0); TOTAL PROTEIN 4.6 G/DL (6.4-8.3)
[2017-03-12 06:58] LABS: UREA NITROGEN (BUN) 115 mg/dL (9-23)
[2017-03-12 07:00] LABS: UREA NITROGEN (BUN) 115 mg/dL (9-23)
[2017-03-13] VITALS (14 sets, daily range): BP systolic 124–158; BP diastolic 79–104
[2017-03-13 04:52] LABS: ALBUMIN 2.9 g/dL (3.2-4.8)
[2017-03-13 04:53] LABS: CHLORIDE 88 mEq/L (99-109); POTASSIUM 5.7 mEq/L (3.7-5.4); SODIUM 132 mEq/L (136-147)
[2017-03-13 04:55] LABS: GLUCOSE 181 mg/dL (70-99)
[2017-03-13 04:59] LABS: CREATININE 3.3 mg/dL (0.6-1.3); GFR ESTIMATE (CALCULATED) 19 mL/min/ (58.99-99999)
[2017-03-13 05:12] LABS: UREA NITROGEN (BUN) 111 mg/dL (9-23)
[2017-03-14] VITALS (16 sets, daily range): BP systolic 85–157; BP diastolic 51–111
[2017-03-14 06:26] LABS: ALBUMIN 2.9 G/DL (3.2-4.8); CHLORIDE 91 MEQ/L (99-109); CREATININE 3.1 MG/DL (0.6-1.3); GFR ESTIMATE (CALCULATED) 21 mL/min/ (58.99-99999); GLUCOSE 166 mg/dL (70-99); PHOSPHORUS 6.6 mg/dL (2.5-4.9); POTASSIUM 5.4 MEQ/L (3.7-5.4); SODIUM 134 MEQ/L (136-147); UREA NITROGEN (BUN) 97 mg/dL (9-23)
[2017-03-14 14:44] LABS: BASE EXCESS -5.1 mEq/L (-3 to +3); BICARBONATE 22.9 mEq/L (22-26); CARBOXY HGB 2.4 % (0-5); COMMENTS - BLOOD GASES A+C+; DEVICE 980 PB; FI02 30 %; METHEMOGLOBIN 1.8 % (0-1.5); MODE SPONT; PCO2 56 mm Hg (35-45); PEEP 5 CM/H20; PO2 76 mm Hg (80-100); PRES. SUPPORT 5 CM/H2O; SITE RR; TOTAL RESP RATE 13 resp/min; pH 7.22 (7.35-7.45)
[2017-03-15] VITALS (24 sets, daily range): BP systolic 83–140; BP diastolic 55–92
[2017-03-15 06:50] LABS: ALBUMIN 2.7 G/DL (3.2-4.8); CHLORIDE 90 MEQ/L (99-109); GFR ESTIMATE (CALCULATED) 16 mL/min/ (58.99-99999); GLUCOSE 229 mg/dL (70-99); PHOSPHORUS 9.1 mg/dL (2.5-4.9); POTASSIUM 5.4 MEQ/L (3.7-5.4); SODIUM 134 MEQ/L (136-147); UREA NITROGEN (BUN) 133 mg/dL (9-23)
[2017-03-15 07:55] LABS: BASOPHIL (%) 0.1 % (0-1); EOSINOPHIL (%) 0.1 % (0-5); HEMATOCRIT 29.7 % (38.0-50.0); HEMOGLOBIN 9.1 G/DL (12.5-16.6); LYMPHOCYTE (%) 2.4 % (15-42); LYMPHOCYTE COUNT 0.4 K/uL (1.0-2.8); MCH 28.3 PG (29.0-34.0); MCHC 30.6 G/DL (30.0-36.0); MCV 92.2 FL (86-99); MONOCYTE COUNT 1.1 K/uL (0-0.8); NEUTROPHIL (%) 85.4 % (45-76); NEUTROPHIL COUNT 12.9 K/uL (1.8-6.4); PLATELET COUNT 106 K/uL (156-360); RBC DIS.WIDTH-CV 17.7 % (11.8-14.6); RBC DIS.WIDTH-SD 57.9 % (39-53); RED BLOOD COUNT 3.22 M/uL (4.00-5.50); WHITE BLOOD COUNT 15.1 K/uL (4.1-10.2)
[2017-03-15 17:41] LABS: BASE EXCESS 10.4 mEq/L (-3 to +3); CARBOXY HGB 2.1 % (0-5); METHEMOGLOBIN 1.9 % (0-1.5); PCO2 56 mm Hg (35-45)
[2017-03-15 17:42] LABS: BICARBONATE 36.3 mEq/L (22-26); COMMENTS - BLOOD GASES A+C+; DEVICE 980 PB; FI02 40 %; MECHANICAL RATE 24 resp/min; MODE AC; PEEP 5 CM/H20; PO2 95 mm Hg (80-100); SITE RR; TIDAL VOLUME 400 ML; TOTAL RESP RATE 24 resp/min; pH 7.42 (7.35-7.45)
[2017-03-16] VITALS (23 sets, daily range): BP systolic 91–134; BP diastolic 63–99
[2017-03-16 06:16] LABS: BASE EXCESS 8.6 mEq/L (-3 to +3); BICARBONATE 34.7 mEq/L (22-26); CARBOXY HGB 2.1 % (0-5); COMMENTS - BLOOD GASES C+; DEVICE VENT; METHEMOGLOBIN 1.5 % (0-1.5); PCO2 56 mm Hg (35-45); PO2 73 mm Hg (80-100); SITE RR
[2017-03-16 06:17] LABS: FI02 30 %; MECHANICAL RATE 24 resp/min; MODE AC; PEEP 5 CM/H20; TIDAL VOLUME 400 ML; TOTAL RESP RATE 24 resp/min
[2017-03-16 06:59] LABS: ALBUMIN 3.1 G/DL (3.2-4.8); CHLORIDE 92 MEQ/L (99-109); GFR ESTIMATE (CALCULATED) 19 mL/min/ (58.99-99999); GLUCOSE 209 mg/dL (70-99); PHOSPHORUS 7.8 mg/dL (2.5-4.9); POTASSIUM 4.8 MEQ/L (3.7-5.4); SODIUM 139 MEQ/L (136-147)
[2017-03-16 07:27] LABS: CREATININE 3.3 MG/DL (0.6-1.3); UREA NITROGEN (BUN) 118 mg/dL (9-23)
[2017-03-16 07:31] LABS: BASOPHIL (%) 0.2 % (0-1); EOSINOPHIL (%) 0.1 % (0-5); HEMATOCRIT 28.1 % (38.0-50.0); HEMOGLOBIN 8.9 G/DL (12.5-16.6); IMMATURE GRANULOCYTE (%) 4.5 % (0.0-0.7); LYMPHOCYTE (%) 1.6 % (15-42); LYMPHOCYTE COUNT 0.2 K/uL (1.0-2.8); MCH 29.6 PG (29.0-34.0); MCHC 31.7 G/DL (30.0-36.0); MCV 93.4 FL (86-99); MONOCYTE COUNT 0.9 K/uL (0-0.8); NEUTROPHIL (%) 86.6 % (45-76); NEUTROPHIL COUNT 10.6 K/uL (1.8-6.4); PLATELET COUNT 93 K/uL (156-360); RBC DIS.WIDTH-CV 18.1 % (11.8-14.6); RBC DIS.WIDTH-SD 60.1 % (39-53); RED BLOOD COUNT 3.01 M/uL (4.00-5.50); WHITE BLOOD COUNT 12.2 K/uL (4.1-10.2)
[2017-03-16 20:05] LABS: IRON 54 MCG/DL (35-150); TRANSFERRIN (TIBC) 125.7 mg/dL (215-380); TRANSFERRIN SATUR. 43 % (20-55)
[2017-03-17] VITALS (21 sets, daily range): BP systolic 82–157; BP diastolic 47–121
[2017-03-17 07:57] LABS: ALBUMIN 3.4 G/DL (3.2-4.8); CHLORIDE 99 MEQ/L (99-109); GFR ESTIMATE (CALCULATED) 25 mL/min/ (58.99-99999); PHOSPHORUS 5.8 mg/dL (2.5-4.9); POTASSIUM 4.4 MEQ/L (3.7-5.4); SODIUM 142 MEQ/L (136-147); UREA NITROGEN (BUN) 93 mg/dL (9-23)
[2017-03-17 08:00] LABS: CREATININE 2.7 MG/DL (0.6-1.3); GLUCOSE 74 mg/dL (70-99)
[2017-03-17 10:36] LABS: BASOPHIL (%) 0.2 % (0-1); EOSINOPHIL (%) 0.2 % (0-5); HEMATOCRIT 30.8 % (38.0-50.0); HEMOGLOBIN 9.5 G/DL (12.5-16.6); IMMATURE GRANULOCYTE (%) 2.6 % (0.0-0.7); LYMPHOCYTE (%) 3.3 % (15-42); LYMPHOCYTE COUNT 0.4 K/uL (1.0-2.8); MCH 29.1 PG (29.0-34.0); MCHC 30.8 G/DL (30.0-36.0); MCV 94.2 FL (86-99); MONOCYTE (%) 9.8 % (3-12); MONOCYTE COUNT 1.2 K/uL (0-0.8); NEUTROPHIL (%) 83.9 % (45-76); NEUTROPHIL COUNT 10.4 K/uL (1.8-6.4); PLATELET COUNT 96 K/uL (156-360); RBC DIS.WIDTH-CV 18.4 % (11.8-14.6); RBC DIS.WIDTH-SD 60.2 % (39-53); RED BLOOD COUNT 3.27 M/uL (4.00-5.50); WHITE BLOOD COUNT 12.4 K/uL (4.1-10.2)
[2017-03-17 11:13] LABS: SODIUM 139 mEq/L (136-147)
[2017-03-17 11:14] LABS: MAGNESIUM 2.3 mg/dL (1.3-2.7)
[2017-03-17 11:15] LABS: CHLORIDE 99 mEq/L (99-109)
[2017-03-17 11:18] LABS: PHOSPHORUS 6.2 mg/dL (2.5-4.9)
[2017-03-17 11:19] LABS: CREATININE 2.7 mg/dL (0.6-1.3); GFR ESTIMATE (CALCULATED) 25 mL/min/ (58.99-99999)
[2017-03-17 11:20] LABS: UREA NITROGEN (BUN) 98 mg/dL (9-23)
[2017-03-17 11:24] LABS: GLUCOSE 50 mg/dL (70-99)
[2017-03-18] VITALS (12 sets, daily range): BP systolic 102–138; BP diastolic 63–95
[2017-03-18 07:03] LABS: BASOPHIL (%) 0.1 % (0-1); EOSINOPHIL (%) 0 % (0-5); HEMATOCRIT 30.2 % (38.0-50.0); HEMOGLOBIN 9.5 G/DL (12.5-16.6); IMMATURE GRANULOCYTE (%) 3.1 % (0.0-0.7); LYMPHOCYTE (%) 2.2 % (15-42); LYMPHOCYTE COUNT 0.2 K/uL (1.0-2.8); MCH 29.4 PG (29.0-34.0); MCHC 31.5 G/DL (30.0-36.0); MCV 93.5 FL (86-99); MONOCYTE (%) 3.7 % (3-12); MONOCYTE COUNT 0.4 K/uL (0-0.8); NEUTROPHIL (%) 90.9 % (45-76); NEUTROPHIL COUNT 10.1 K/uL (1.8-6.4); PLATELET COUNT 96 K/uL (156-360); RBC DIS.WIDTH-CV 18.3 % (11.8-14.6); RBC DIS.WIDTH-SD 60.2 % (39-53); RED BLOOD COUNT 3.23 M/uL (4.00-5.50); WHITE BLOOD COUNT 11.1 K/uL (4.1-10.2)
[2017-03-18 07:42] LABS: ALBUMIN 3.3 G/DL (3.2-4.8); CHLORIDE 98 MEQ/L (99-109); GFR ESTIMATE (CALCULATED) 22 mL/min/ (58.99-99999); MAGNESIUM 2.5 mg/dl (1.3-2.7); PHOSPHORUS 7.7 mg/dL (2.5-4.9); SODIUM 140 MEQ/L (136-147)
[2017-03-18 07:54] LABS: GLUCOSE 190 mg/dL (70-99)
[2017-03-18 07:56] LABS: POTASSIUM 5.2 MEQ/L (3.7-5.4); UREA NITROGEN (BUN) 106 mg/dL (9-23)
[2017-03-18 09:08] LABS: BASE EXCESS 12.4 mEq/L (-3 to +3); BICARBONATE 39.3 mEq/L (22-26); COMMENTS - BLOOD GASES A+C+; DEVICE NC; METHEMOGLOBIN 1.4 % (0-1.5); O2 FLOW 3 L/MIN; PCO2 65 mm Hg (35-45); PO2 58 mm Hg (80-100); SITE RR; TOTAL RESP RATE 12 resp/min; pH 7.39 (7.35-7.45)
[2017-03-19] VITALS (10 sets, daily range): BP systolic 115–138; BP diastolic 78–92
[2017-03-19 05:37] LABS: ALBUMIN 3.6 g/dL (3.2-4.8); CHLORIDE 97 mEq/L (99-109); POTASSIUM 4.9 mEq/L (3.7-5.4); SODIUM 141 mEq/L (136-147)
[2017-03-19 05:38] LABS: MAGNESIUM 2.3 mg/dL (1.3-2.7)
[2017-03-19 05:39] LABS: GLUCOSE 258 mg/dL (70-99)
[2017-03-19 05:42] LABS: PHOSPHORUS 8.3 mg/dL (2.5-4.9)
[2017-03-19 05:43] LABS: GFR ESTIMATE (CALCULATED) 18 mL/min/ (58.99-99999)
[2017-03-19 05:53] LABS: CREATININE 3.6 mg/dL (0.6-1.3); UREA NITROGEN (BUN) 130 mg/dL (9-23)
[2017-03-19 05:57] LABS: BASOPHIL (%) 0.1 % (0-1); EOSINOPHIL (%) 0 % (0-5); HEMATOCRIT 31.2 % (38.0-50.0); HEMOGLOBIN 9.6 G/DL (12.5-16.6); IMMATURE GRANULOCYTE (%) 1.4 % (0.0-0.7); LYMPHOCYTE (%) 0.8 % (15-42); LYMPHOCYTE COUNT 0.1 K/uL (1.0-2.8); MCHC 30.8 G/DL (30.0-36.0); MCV 94.3 FL (86-99); MONOCYTE COUNT 0.8 K/uL (0-0.8); NEUTROPHIL (%) 92.7 % (45-76); NEUTROPHIL COUNT 14.3 K/uL (1.8-6.4); PLATELET COUNT 119 K/uL (156-360); RBC DIS.WIDTH-CV 18.3 % (11.8-14.6); RED BLOOD COUNT 3.31 M/uL (4.00-5.50); WHITE BLOOD COUNT 15.4 K/uL (4.1-10.2)
[2017-03-20] VITALS: BP 90/35
== END 2017-03-20 02:00 | DRG 207 ==
LOC: EME 18:05 → 4WEST 22:08 → 5SOUTH 22:08 → EDOF 22:08 → ENRESERV 22:09 → 5SOUTH 23:56 → ENRESERV 03-09 17:47 → 4WEST 03-09 18:18
PROVIDERS: Emergency Medicine; Hospitalist; Internal Medicine; Internal Medicine Critical Care Medicine; Internal Medicine Infectious Disease; Internal Medicine Nephrology; Internal Medicine Pulmonary Disease; Specialist
PROC: 5A09357 Assistance with Respiratory Ventilation, Less than 24 Consecutive Hours, Continuous Positive Airway Pressure (ICD-10-PCS; principal; 2017-03-07)
PROC: 0BH17EZ Insertion of Endotracheal Airway into Trachea, Via Natural or Artificial Opening (ICD-10-PCS; 2017-03-09)
PROC: 02HV33Z Insertion of Infusion Device into Superior Vena Cava, Percutaneous Approach (ICD-10-PCS; 2017-03-09)
PROC: 5A1955Z Respiratory Ventilation, Greater than 96 Consecutive Hours (ICD-10-PCS; 2017-03-10)
PROC: 5A1D70Z Performance of Urinary Filtration, Intermittent, Less than 6 Hours Per Day (ICD-10-PCS; 2017-03-11)
PROC: 02HV33Z Insertion of Infusion Device into Superior Vena Cava, Percutaneous Approach (ICD-10-PCS; 2017-03-11)
DX: J96.21 Acute and chronic respiratory failure with hypoxia (principal); J69.0 Pneumonitis due to inhalation of food and vomit; J44.1 Chronic obstructive pulmonary disease with (acute) exacerbation; J96.22 Acute and chronic respiratory failure with hypercapnia; Z51.5 Encounter for palliative care; I13.0 Hypertensive heart and chronic kidney disease with heart failure and stage 1 through stage 4 chronic kidney disease, or unspecified chronic kidney disease; I50.32 Chronic diastolic (congestive) heart failure; N18.4 Chronic kidney disease, stage 4 (severe); Z66 Do not resuscitate; Z99.81 Dependence on supplemental oxygen; Z90.2 Acquired absence of lung [part of]; I25.10 Atherosclerotic heart disease of native coronary artery without angina pectoris; E66.01 Morbid (severe) obesity due to excess calories; Z87.891 Personal history of nicotine dependence; Z96.651 Presence of right artificial knee joint; Z68.44 Body mass index [BMI] 60.0-69.9, adult; I48.2 Chronic atrial fibrillation; I48.0 Paroxysmal atrial fibrillation; G47.33 Obstructive sleep apnea (adult) (pediatric); E78.5 Hyperlipidemia, unspecified; Z85.118 Personal history of other malignant neoplasm of bronchus and lung; Z86.718 Personal history of other venous thrombosis and embolism; Z86.711 Personal history of pulmonary embolism; E11.22 Type 2 diabetes mellitus with diabetic chronic kidney disease; E87.2 Acidosis; E87.5 Hyperkalemia; N17.0 Acute kidney failure with tubular necrosis; D63.1 Anemia in chronic kidney disease; R13.10 Dysphagia, unspecified; I27.81 Cor pulmonale (chronic); N25.81 Secondary hyperparathyroidism of renal origin; J98.11 Atelectasis; K21.9 Gastro-esophageal reflux disease without esophagitis; I25.2 Old myocardial infarction
CPT/HCPCS: 31500; 36600; 71010; 71045; 71250; 80048; 80048 91; 80053; 80069; 80202; 81003; 82436; 82565; 82570; 82803; 82948; 83540; 83605; 83735; 83880; 84100; 84156; 84300; 84466; 84484; 84520; 84540; 85025; 85027; 85610; 85730; 86704; 86706; 86803; 87040; 87070; 87205; 87340; 87449; 87502; 87641; 92526 GN; 92610 GN; 93005; 94002; 94003; 94640; 94640 76; 94660; 94760; 94799; 97530 GP; 99202; 99281; 99285; C1751; C1769; J0692; J0881; J1644; J1815; J1940; J1956; J2060; J2250; J2270; J2543; J2704; J2920; J2930; J3010; J3370; J7050; J7120; P9047; S0028